=== PATIENT | female | born 1985 | race Caucasian/White ===

== ENCOUNTER 2025-06-30 13:26 | Inpatient (IN) | payer OTHER ==
[2025-06-30] MEDS ORDERED: Lidocaine 1% (PF) 30 ML VIAL SC PRN (13:32)
[2025-06-30] MEDS ORDERED: Ibuprofen 800 MG TAB PO PRN (13:32)
[2025-06-30] MEDS ORDERED: Ondansetron PF 4 MG/2 ML Vial IVP PRN ×2 (13:32→20:37)
[2025-06-30] MEDS ORDERED: hydrALAZINE 20 MG/ML VIAL SLOW IVP PRN (13:32)
[2025-06-30] MEDS ORDERED: Tranexamic Acid 1,000 MG/10 ML VIAL IVP PRN (13:32)
[2025-06-30] MEDS ORDERED: Diphenoxylate HCl/Atropine Tablet PO PRN ×2 (13:32)
[2025-06-30] MEDS ORDERED: Methylergonovine 0.2 MG/ML VIAL IM PRN (13:32)
[2025-06-30] MEDS ORDERED: Carboprost 250 MCG/ML AMP IM PRN (13:32)
[2025-06-30] MEDS ORDERED: Oxytocin 30 units/NS 500 ML 500 ML IV SCH (13:45)
[2025-06-30 15:04] LABS: Hematocrit 37.0 % (34.9-44.5); Hemoglobin 12.1 g/dL (12.0-15.5); Mean Corpuscular Hemoglobin 28.8 pg (27.0-33.0); Mean Corpuscular Volume 88.1 fL (81.6-98.3); Platelet Count 224 10x3/uL (150-450); Red Blood Cell (RBC) Count 4.20 10x6/uL (3.90-5.03); White Blood Cell (WBC) Count 8.50 10x3/uL (3.5-10.5)
[2025-06-30 15:22] VITALS: BMI 41.8
[2025-06-30 15:32] LABS: ALT (SGPT) 15 U/L (Less than 34); AST (SGOT) 26 U/L (11-34); Albumin 2.6 g/dL (3.1-4.5); Alkaline Phosphatase 130 U/L (40-110); Anion Gap 17 mmol/L (10-20); BUN (Urea Nitrogen) 5 mg/dL (7.0-18.7); Bilirubin, Total 0.3 mg/dL (0.3-1.2); Calc. Creatinine Clearance 201 mL/min (70-130); Calcium 8.1 mg/dL (7.8-10.44); Carbon Dioxide 17 mmol/L (22-29); Chloride 109 mmol/L (98-107); Globulin 3.3 g/dL (2.4-3.5); Glucose 123 mg/dL (70-105); Potassium 3.9 mmol/L (3.5-5.1); Sodium 139 mmol/L (136-145)
[2025-06-30 15:47] LABS: Hep B Surf Ag - L&D Non-Reactive S/CO (NonReactive)
[2025-06-30 15:49] LABS: Syphilis Antibody Index 0.05 S/CO (<1.00 Non-Reactive)
[2025-06-30] MEDS ORDERED: Sodium Chloride 0.65% Nasal 44 ML BOT EA NARE PRN (15:56)
[2025-06-30 16:14] LABS: Protein, Urine Random Quant 25.0 mg/dL (1-14)
[2025-06-30] MEDS: Oxytocin 30 units/NS 500 ML 500 ML IV SCH (19:35)
[2025-06-30] MEDS: fentaNYL/Ropivacaine Epidural 100 ML ONE (20:34)
[2025-06-30] MEDS ORDERED: diphenhydrAMINE 50 MG/ML VIAL IVP PRN (20:37)
[2025-06-30] MEDS ORDERED: Communication Order-Pharmacy FS SCH (20:45)
[2025-07-01] MEDS: fentaNYL 2 mcg/Ropivacaine 0.2% Epidural 100 ML CADD EPIDURAL SCH (07:26)
[2025-07-01 11:13] LABS: Analyzer IN Cardio CS NICU; Critical Notified By: S. Buerger, RRT; RapidComm Collect By RN
[2025-07-01 11:16] LABS: Analyzer IN Cardio CS NICU; Critical Notified By: S. Buerger, RRT; RapidComm Collect By RN; pH (Cord, venous) 7.351 (7.250-7.350)
[2025-07-01] MEDS ORDERED: hydrALAZINE 20 MG/ML VIAL SLOW IVP PRN (11:24)
[2025-07-01] MEDS ORDERED: Methylergonovine 0.2 MG/ML VIAL IM PRN (11:24)
[2025-07-01] MEDS ORDERED: Milk Of Magnesia 30 ML UDCUP PO PRN (11:24)
[2025-07-01] MEDS ORDERED: Benzocaine-Menthol 82.5 ML CAN TOP PRN (11:24)
[2025-07-01] MEDS ORDERED: Ondansetron PF 4 MG/2 ML Vial IVP PRN (11:24)
[2025-07-01] MEDS ORDERED: Bisacodyl 10 MG SUPP PR PRN (11:24)
[2025-07-01] MEDS ORDERED: Oxytocin 30 units/NS 500 ML 500 ML IV SCH (11:30)
[2025-07-01] MEDS: Ibuprofen 800 MG TAB PO SCH (12:54)
[2025-07-01] MEDS: fentaNYL/Ropivacaine Epidural 100 ML ONE (14:17)
[2025-07-01] MEDS: HYDROcodone/Acetaminophen 5/325 mg Tablet PO SCH (14:30)
[2025-07-01] MEDS: Boostrix 0.5 ML (Tdap) VIAL (>/=7 yrs of age) IM ONE (16:47)
[2025-07-01] MEDS: Ferrous Sulfate 325 MG TAB PO SCH (18:12)
[2025-07-01] MEDS: Acetaminophen 325 MG TAB PO PRN (20:19)
[2025-07-03 07:36] VITALS: BP 119/76; TEMP 98
== END 2025-07-03 12:50 | disposition home or self-care (01) | DRG 807 ==
LOC: CSHLD 13:26 → CSHPED 07-01 13:30
PROVIDERS: ADMIT Emergency Medicine; ATTEND Emergency Medicine
PROC: 10E0XZZ Delivery of Products of Conception, External Approach (ICD-10-PCS; principal; 2025-07-01)
PROC: 0KQM0ZZ Repair Perineum Muscle, Open Approach (ICD-10-PCS; 2025-07-01)
PROC: 10907ZC Drainage of Amniotic Fluid, Therapeutic from Products of Conception, Via Natural or Artificial Opening (ICD-10-PCS; 2025-07-01)
PROC: 10H07YZ Insertion of Other Device into Products of Conception, Via Natural or Artificial Opening (ICD-10-PCS; 2025-07-01)
PROC: 0W8NXZZ Division of Female Perineum, External Approach (ICD-10-PCS; 2025-07-01)
DX: O13.4 Gestational [pregnancy-induced] hypertension without significant proteinuria, complicating childbirth (principal); Z37.0 Single live birth; O99.214 Obesity complicating childbirth; E66.813 Obesity, class 3; O48.0 Post-term pregnancy; O66.0 Obstructed labor due to shoulder dystocia; O70.1 Second degree perineal laceration during delivery; Z3A.40 40 weeks gestation of pregnancy; Z79.82 Long term (current) use of aspirin
CPT/HCPCS: 51702; 80053; 82570; 82805; 84156; 85027; 86780; 86850; 86900; 86901; 87340; J2590